=== PATIENT | male | born 1965 | race Caucasian/White ===

== ENCOUNTER 2024-04-02 10:39 | Day surgery (SDC) | payer MEDICAID ==
[2024-04-02] VITALS (7 sets, daily range): BP systolic 113–139; BP diastolic 67–94; PULSE 80; TEMP 97.7
[~2024-04-02] VITALS: Ht 180.3 cm; Wt 110.2 kg
[2024-04-02] MEDS ORDERED: COREG 25MG25 MG/TAB PO (11:13)
[2024-04-02] MEDS ORDERED: ELIQUIS 5MG PO (11:14)
[2024-04-02] MEDS ORDERED: PRINIVIL5 MG PO (11:14)
[2024-04-02] MEDS ORDERED: BUMEX 1MG TA1 MG/TA1 PO (11:14)
[2024-04-02] MEDS ORDERED: 1/2 NS 1,000 ML IV SCH (11:15)
[2024-04-02] MEDS ORDERED: ALDACTONE 25MG25 M1 PO (11:15)
[2024-04-02] MEDS ORDERED: ceFAZolin 2 G in Water For Injection,Sterile 20 ML IV SCH (11:15)
[2024-04-02 11:36] LABS: BASO # 0.1 K/mm3 (0.0-0.2); BASO % 0.5 % (0.0-2.0); EOS # 0.2 K/mm3 (0.0-0.7); EOS % 1.4 % (0.0-4.0); GRAN # 7.9 K/mm3 (1.4-6.5); GRAN % 66.9 % (42.2-75.2); HEMATOCRIT 40.6 % (42.0-52.0); HEMOGLOBIN 14.4 g/dl (13.5-18.0); LYMPH # 2.5 K/mm3 (1.2-3.4); LYMPH % 21.4 % (20.0-51.0); MEAN CELL VOLUME 94 fl (80.0-100.0); MEAN CORPUSCULAR HEMOGLOBIN 34 pg (27-31); MEAN CORPUSCULAR HGB CONC 36 g/dl (33.0-37.0); MEAN PLATELET VOLUME 9.4 fl (7.4-10.4); MONO # 1.1 K/mm3 (0.1-0.6); MONO % 9.5 % (1.7-9.3); PLATELET COUNT 151 K/mm3 (130-400); REDCELL DISTRIBUTION WIDTH-CV 11.9 % (11.5-14.5)
[2024-04-02 11:41] LABS: INR 1.2 (0.8-3.0); PROTHROMBIN TIME 12.8 SECONDS (9.7-12.8)
[2024-04-02 11:51] LABS: CALCIUM 10.1 mg/dL (8.4-10.2); CREATININE, serum 0.92 mg/dL (0.72-1.25); POTASSIUM 4.4 mEq/L (3.5-4.5)
[2024-04-02] MEDS ORDERED: Topical Skin Adhesive 1 EACH (1 ML) TOP ONE (14:46)
[2024-04-02] MEDS ORDERED: fentaNYL 50 MCG/ML 2 ML VIAL IV SCH (14:48)
[2024-04-02] MEDS ORDERED: Midazolam 2 MG/2 ML VIAL IV SCH (14:48)
--- NOTE | 2024-04-02 15:10 | NUR ---
Azucena is transferred back to express unit rm [address] after [address] Change with Dr[address] Gregory. Azucena is awake and alert, relaxed. Dressing to left upper chest is clean and dry. Post procedure vitals and tele initiated. BS report and handoff of care to Grace KEYS.
[2024-04-02] MEDS ORDERED: CEPHALEXIN500 M1 PO (16:55)
--- NOTE | 2024-04-02 17:20 | NUR ---
PT TOLERATED RECOVERY PERIOD WELL. VS REMAINED WITHIN NORMAL LIMITS. PT FREE FROM ACUTE CONCERNS AND COMPLAINTS UPON DISCHARGE. IV DISCONTINUED. PT ASSISTED TO MAIN LOBBY VIA WHEELCHAIR PER PROTOCOL. PT VERBALIZED UNDERSTANDING OF DISCHARGE INSTRUCTIONS.
== END 2024-04-02 17:21 | disposition home or self-care (01) ==
LOC: COL.CAR 10:39
PROVIDERS: Internal Medicine Cardiovascular Disease
DX: Z45.02 Encounter for adjustment and management of automatic implantable cardiac defibrillator (principal)
CPT/HCPCS: C1882; J0665-JZ; J0688; J0690; J2250; J3010